=== PATIENT | male | born 1965 | race Caucasian/White ===

== ENCOUNTER 2021-02-05 18:10 | Inpatient (IN) | payer MEDICAID, SELFPAY ==
[~2021-02-05] VITALS: Ht 172.7 cm; Wt 92.5 kg
[2021-02-05 18:34] VITALS: BP 122/85
--- NOTE | 2021-02-05 18:52 | NUR ---
PT AMB TO BED 1.
[2021-02-05] MEDS ORDERED: DEXAMETHASONE 4 MG/ML VIAL IVP ONE (19:05)
[2021-02-05 19:12] LABS: BASOPHILS % (AUTO) 0.5 % (0.0-2.0); EOSINOPHILS # (AUTO) 0.1 K/uL (0-0.4); EOSINOPHILS % (AUTO) 0.6 % (0.0-4.0); HEMATOCRIT 45.3 % (36-52); HEMOGLOBIN 15.8 g/dL (12.0-18.0); LYMPHOCYTES # (AUTO) 1.2 K/uL (2.0-11.5); MEAN CORPUSCULAR HEMOGLOBIN 30 pg (27-31); MEAN CORPUSCULAR HGB CONC 35 g/dL (33-37); MEAN CORPUSCULAR VOLUME 86.6 fL (80-94); MONOCYTES # (AUTO) 0.7 K/uL (0.8-1.0); MONOCYTES % (AUTO) 7.3 % (1.7-9.3); NEUTROPHILS # (AUTO) 7.7 K/uL (1.8-7.7); NEUTROPHILS % (AUTO) 79.6 % (42.2-75.2); PLATELET COUNT (AUTO) 290 K/uL (140-450); RED BLOOD CELL COUNT(AUTO) 5.23 MIL/uL (4.20-6.10); RED CELL DISTRIBUTION WIDTH 13.1 % (11.6-13.7); WHITE BLOOD COUNT (AUTO) 9.6 K/uL (4.8-10.8)
[2021-02-05 19:23] LABS: PROTHROMBIN TIME 10.2 secs (10.8-13.4)
[2021-02-05 19:26] LABS: PROTHROMBIN TIME 10.2 secs (10.8-13.4)
[2021-02-05 19:29] LABS: ALBUMIN 2.7 g/dL (3.4-5.0); ANION GAP 15.1 (8-16); CARBON DIOXIDE 24.9 mmol/L (21-32); CREATININE 1.1 mg/dL (0.6-1.3); TOTAL BILIRUBIN 0.5 mg/dL (0.0-1.0)
--- NOTE | 2021-02-05 19:34 | NUR ---
patient c/o SOB. crackles, and diminished breath sounds heard throughout lung gutierrez. patient has moist productive cough. patient was redirected from dr office due to O2 sats trending in the 70s-80s. patient reports having bronchitis. symptoms started 2wks ago. patient c/o difficulty with ADLs causing that difficulty breathing and some pressure on the chest. patient c/o of 8/10 pain. AAOx4. pmh: asthma, DM NKA
[2021-02-05 19:35] LABS: LACTATE DEHYDROGENASE 153 U/L (85-227)
[2021-02-05] MEDS ORDERED: AZITHROMYCIN 500 MG in DEXTROSE 5% 250 ML IV ONE (20:00)
--- NOTE | 2021-02-05 20:16 | NUR ---
SENT SWAB OF RSV, INFLUENZA, ASHLEY, PCR TO LAB.
[2021-02-05] MEDS ORDERED: cefTRIAXone 1,000 MG VIAL ONE (20:40)
[2021-02-05] MEDS ORDERED: NACL 0.9% 1,000 ML IV ONE (21:00)
[2021-02-05] MEDS ORDERED: AZITHROMYCIN 500 MG INJ VIAL IV ONE (21:04)
--- NOTE | 2021-02-05 22:38 | NUR ---
provided patient with urinal to urinate
[2021-02-06 00:01] LABS: APPEARANCE,URINE CLEAR (CLEAR); BILIRUBIN,URINE NEGATIVE (NEGATIVE); BLOOD, URINE NEGATIVE (NEGATIVE); COLOR,URINE YELLOW (YELLOW); LEUKOCYTE ESTERASE ,URINE NEGATIVE (NEGATIVE); NITRITE, URINE NEGATIVE (NEGATIVE); UGLUCOSE 3+ (NEGATIVE)
[2021-02-06 00:16] LABS: RBC,URINE 0-5 /HPF (0-5); WBC,URINE NONE SEEN /HPF (0-5)
[2021-02-06] MEDS: NACL 0.9% 1,000 ML IV SCH (00:20)
[2021-02-06] MEDS ORDERED: MORPHINE SULFATE 2 MG/ML SYR IVP PRN (00:20)
[2021-02-06] MEDS ORDERED: DOCUSATE SODIUM 100 MG GELCAP PO PRN (00:20)
[2021-02-06] MEDS ORDERED: MAGNESIUM OXIDE 400 MG TAB PO PRN (00:20)
[2021-02-06] MEDS ORDERED: POTASSIUM CHLORIDE 10 MEQ TABER PO PRN (00:20)
[2021-02-06] MEDS ORDERED: ACETAMINOPHEN 325 MG TAB PO PRN (00:20)
[2021-02-06] MEDS ORDERED: ALBUTEROL SULFATE/IPRATROPIU 3 ML SOL IH PRN (00:20)
[2021-02-06] MEDS ORDERED: ONDANSETRON 4 MG/2 ML VIAL IM/IVP PRN (00:20)
[2021-02-06] MEDS ORDERED: HYDROcodone/APAP 5/325 MG 1 TAB TAB PO PRN (00:20)
[2021-02-06] MEDS ORDERED: SODIUM PHOS / POTASSIUM PHOS 1 PKT PDR PO PRN (00:20)
[2021-02-06] MEDS ORDERED: DEXTROSE 50% 50 ML SYR IVP PRN (00:35)
--- NOTE | 2021-02-06 01:02 | NUR ---
provided patient with urinal for urination
--- NOTE | 2021-02-06 05:01 | NUR ---
Patient appears to be resting comfortably in bed. Vital Signs within normal limits. Respirations even and unlabored. Safety measures are in place, will continue to monitor patient
[2021-02-06 06:59] LABS: BASOPHILS % (AUTO) 0.4 % (0.0-2.0); EOSINOPHILS % (AUTO) 0.1 % (0.0-4.0); HEMATOCRIT 43.9 % (36-52); LYMPHOCYTES # (AUTO) 1.4 K/uL (2.0-11.5); LYMPHOCYTES % (AUTO) 17.4 % (20.5-51.1); MEAN CORPUSCULAR HEMOGLOBIN 30 pg (27-31); MEAN CORPUSCULAR HGB CONC 34 g/dL (33-37); MEAN CORPUSCULAR VOLUME 86.2 fL (80-94); MONOCYTES # (AUTO) 0.5 K/uL (0.8-1.0); MONOCYTES % (AUTO) 6.3 % (1.7-9.3); NEUTROPHILS # (AUTO) 6.2 K/uL (1.8-7.7); NEUTROPHILS % (AUTO) 75.8 % (42.2-75.2); PLATELET COUNT (AUTO) 290 K/uL (140-450); RED BLOOD CELL COUNT(AUTO) 5.09 MIL/uL (4.20-6.10); RED CELL DISTRIBUTION WIDTH 13.1 % (11.6-13.7); WHITE BLOOD COUNT (AUTO) 8.2 K/uL (4.8-10.8)
--- NOTE | 2021-02-06 07:15 | NUR ---
Pt report given to ROBIN Bustos. Transfer of care at this time.
--- NOTE | 2021-02-06 07:15 | NUR ---
Report and continuation of care received from ROBIN Ortez.
[2021-02-06] MEDS: BLOOD GLUCOSE MONITORING 1 DEV DEV FS SCH ×5 (07:30→20:44)
[2021-02-06 07:37] LABS: ANION GAP 14.8 (8-16); CARBON DIOXIDE 24.6 mmol/L (21-32); CREATININE 0.8 mg/dL (0.6-1.3); POTASSIUM 4.4 mmol/L (3.5-5.1)
[2021-02-06 07:41] LABS: PHOSPHORUS 3.6 mg/dL (2.5-4.9)
--- NOTE | 2021-02-06 08:30 | NUR ---
Patient voided 1025mL clear/yellow urine; discarded and new urinal provided.
--- NOTE | 2021-02-06 08:51 | NUR ---
PATIENT HAS BEEN SCREENED AND CATEGORIZED MODERATE NUTRITION RISK. PATIENT WILL BE SEEN WITHIN 3-5 DAYS OF ADMISSION. 02/08/2021-02/10/[address]
[2021-02-06] MEDS: DEXAMETHASONE 4 MG/ML VIAL IVP SCH (10:27)
[2021-02-06] MEDS: PANTOPRAZOLE 40 MG INJ VIAL IVP SCH (10:28)
[2021-02-06] MEDS: ASCORBIC ACID 500 MG TAB PO SCH (10:28)
[2021-02-06] MEDS: ZINC SULF 220 MG CAP PO SCH (10:28)
[2021-02-06] MEDS: VITAMIN D 400 IU TAB PO SCH (10:28)
[2021-02-06] MEDS: ENOXAPARIN 40 MG/0.4 ML SYR SUBQ SCH (10:30)
[2021-02-06] MEDS: INSULIN LISPRO SLIDING SCALE 100 UNITS/ML VIAL SUBQ PRN ×3 (10:42→20:45)
--- NOTE | 2021-02-06 11:00 | NUR ---
SpO2 84%; patient states he feels SOB. NC remains @ 15L by N/C / bubbler. RT paged.
--- NOTE | 2021-02-06 11:05 | NUR ---
RT AT BEDSIDE; PATIENT REPOSITIONED INTO PRONE POSITION; SpO2 90% remains on 15L via N/C bubbler. Patient states relief to SOB in prone position. Will continue to monitor.
--- NOTE | 2021-02-06 11:15 | NUR ---
SpO2 98% in proned position; 15L via NC/bubbleer continued.
--- NOTE | 2021-02-06 11:31 | NUR ---
Report given to ROBIN Cifuentes.
--- NOTE | 2021-02-06 11:45 | NUR ---
Patient will be admitted to care of Dr. Acosta. Admited to Telemetry. Will go to room 118. Belongings list completed. Report to ROBIN Cifuentes.
[2021-02-06 11:51] VITALS: BP_SYST 117; BP_DIAS 117; BP_DIAS 67
--- NOTE | 2021-02-06 11:51 | NUR ---
PT WAS BROUGHT IN FROM THE ED FOR COVID ON A NONREBREATHER AT 15L, PLACED ON A NC BUBBLER AT 15L. PT PLACED IN PRONE SEMI FOWLERS POSITION. PT SATING AT 94%. PT VITAL SIGNS ARE FOLLOWS: 68 HR, 117/67. 95%, 22, 98.7. PT DENIES PAIN AT THIS TIME. PT SKIN DRY, WARM AND INTACT. PT HAS A 20 G RIGHT HAND RUNNING NS AR 40. PT ALSO HAS A 20 G LAC SALINE LOCK THAT IS PATENT. PT RAPID NEGATIVE, PCR PENDING. PT INFLUENZA A&B NEGATIVE. PT PROVIDED WITH A BEDSIDE COMMODE AND URINAL AT BEDSIDE. EDUCATED PT ON IMPORTANCE OF KEEPING O2 ON WHILE TRANSFERRING TO BEDSIDE COMMODE. PT PROVIDED WITH CALL LIGHT AND EDUCATED ON USING IT TO CALL FOR ASSISTANCE. PT VERBALIZED ON ALL TEACHINGS. PT HOOKED UP TO TELE MONITOR SHOWING SINUS RHYTHM AND CONTINUOUS PULSE OX. ALL SAFETY MEASURES IN PLACE, CALL LIGHT WITHIN REACH. WILL CONTINUE TO MONITOR.
[2021-02-06] MEDS ORDERED: AZIT250T3 PO (11:56)
--- NOTE | 2021-02-06 13:01 | NUR ---
PT PROVIDED WITH A LUNCH TRAY, PT IS STABLE SATING AT 90% ON 15L NC BUBBLER
--- NOTE | 2021-02-06 14:57 | NUR ---
ROUNDED ON PT, IN PT ROOM. PT IS ON 15L BUBBLER NC WITH CHEST RISING AND FALLING. ALL SAFETY MEASURES IN PLACE CALL LIGHT WITHIN REACH. WILL CONTINUE TO MONITOR.
[2021-02-06 16:00] VITALS: BP 115/64
--- NOTE | 2021-02-06 16:22 | NUR ---
BLOOD GLUCOSE IS 273, 6 UNITS OF INSULIN ADMINISTERED PER MD ORDER. PT TOLERATED ADMINISTRATION. PT IS SATING AT 90%. ALL SAFETY MEASURES IN PLACE, CALL LIGHT WITHIN REACH. WILL CONTINUE TO MONITOR.
--- NOTE | 2021-02-06 18:21 | NUR ---
PT IS SATING AT 94% SITTING UP IN CHAIR ON 15L NC BUBBLER. PT SHOWS NO S/S OF ACUTE DISTRESS. PT ON HIS PHONE. ALL SAFETY MEASURES IN PLACE CALL LIGHT WITHIN REACH. WILL CONTINUE TO MONITOR.
--- NOTE | 2021-02-06 19:01 | NUR ---
PT IS STABLE. PT ENDORSED TO [employer] [place] NURSE FOR CONTINUITY OF CARE. POC DISCUSSED.
--- NOTE | 2021-02-06 19:50 | NUR ---
RECEIVED PATIENT FROM AM NURSE FOR CONTINUITY OF CARE. PATIENT IS A/A/O X4. ON TELE MONITOR. RESPIRATORY EVEN AND UNLABORED, ON 15L BUBBLER NC, O2 SAT 91%, PATIENT DENIES ANY SOB AND TROUBLE BREATHING. SKIN WARM, DRY, NON DIAPHORETIC. IV ON RIGHT HAND 20G, INTACT AND PATENT, IS INFUSING FLUID ORDER. IV ON LEFT AC 20G, INTACT AND PATENT, SALINE LOCK. BED COMMODE AND URINAL AT BEDSIDE. PATIENT ABLE TO MAKE NEEDS KNOW. PLAN OF CARE DISCUSSED, PATIENT VERBALIZED UNDERSTANDING. PRECAUTION IN PLACE. CALL LIGHT WITHIN REACH. WILL CONTINUE TO MONITOR.
[2021-02-06 20:00] VITALS: BP 112/75
--- NOTE | 2021-02-06 20:20 | NUR ---
ASSIST PATIENT AMBULATE TO BEDSIDE COMMODE. PATIENT TOLERATED WELL. NO SIGN OF DISTRESS NOTED. PRECAUTION IN PLACE. CALL LIGHT WITHIN REACH. WILL CONTINUE TO MONITOR.
--- NOTE | 2021-02-06 22:00 | NUR ---
ROUND CHECK. PATIENT IS RESTING IN BED, NO SIGN OF DISTRESS NOTED. PRECAUTION IN PLACE. CALL LIGHT WITHIN REACH. WILL CONTINUE TO MONITOR.
[2021-02-07] VITALS: BP 116/81
--- NOTE | 2021-02-07 | NUR ---
VITAL SIGN WITHIN NORMAL LIMIT. PATIENT IS SLEEPING, CHEST RISE AND FALL, NO SIGN OF DISTRESS NOTED, O2 SAT 95%. PRECAUTION IN PLACE. CALL LIGHT WITHIN REACH. WILL CONTINUE TO MONITOR.
[2021-02-07] MEDS: NACL 0.9% 1,000 ML IV SCH ×2 (00:20→04:56)
--- NOTE | 2021-02-07 02:00 | NUR ---
ROUND CHECK. PATIENT IS SLEEPING, CHEST RISE AND FALL NOTED. NO SIGN OF RESPIRATORY DISTRESS. PRECAUTION IN PLACE. CALL LIGHT WITHIN REACH. WILL CONTINUE TO MONITOR.
[2021-02-07 04:00] VITALS: BP 132/81
--- NOTE | 2021-02-07 04:00 | NUR ---
VITAL SIGNS TAKEN, PATIENT COMPLAINS OF SOB, O2 SAT 84% ON 15L BUBBLER NC, REQUESTS BREATHING TREATMENT. CONTACT RT. RT AWARE PATIENT'S CONDITION. WILL CONTINUE TO MONITOR.
--- NOTE | 2021-02-07 06:00 | NUR ---
PATIENT REPORTS FEELING BETTER, DENIES ANY SOB OR TROUBLE BREATHING. O2 SAT 89% ON 15L BUBBLER NC. WILL CONTINUE TO MONITOR.
[2021-02-07] MEDS: INSULIN LISPRO SLIDING SCALE 100 UNITS/ML VIAL SUBQ PRN ×3 (06:49→16:45)
[2021-02-07] MEDS: BLOOD GLUCOSE MONITORING 1 DEV DEV FS SCH ×4 (06:49→22:00)
--- NOTE | 2021-02-07 06:49 | NUR ---
BLOOD SUGAR 217, 4UNITS GIVEN TO COVER. PATIENT TOLERATED WELL. NO SIGN OF DISTRESS NOTED.
[2021-02-07 07:12] LABS: BASOPHILS % (AUTO) 0.1 % (0.0-2.0); EOSINOPHILS % (AUTO) 0.5 % (0.0-4.0); HEMATOCRIT 44.1 % (36-52); HEMOGLOBIN 15.2 g/dL (12.0-18.0); LYMPHOCYTES # (AUTO) 1.4 K/uL (2.0-11.5); LYMPHOCYTES % (AUTO) 13.6 % (20.5-51.1); MEAN CORPUSCULAR HEMOGLOBIN 30 pg (27-31); MEAN CORPUSCULAR HGB CONC 35 g/dL (33-37); MEAN CORPUSCULAR VOLUME 87.2 fL (80-94); MONOCYTES # (AUTO) 0.6 K/uL (0.8-1.0); MONOCYTES % (AUTO) 5.5 % (1.7-9.3); NEUTROPHILS # (AUTO) 8.1 K/uL (1.8-7.7); NEUTROPHILS % (AUTO) 80.3 % (42.2-75.2); PLATELET COUNT (AUTO) 334 K/uL (140-450); RED BLOOD CELL COUNT(AUTO) 5.05 MIL/uL (4.20-6.10); RED CELL DISTRIBUTION WIDTH 13.3 % (11.6-13.7); WHITE BLOOD COUNT (AUTO) 10.1 K/uL (4.8-10.8)
--- NOTE | 2021-02-07 07:19 | NUR ---
ENDORSED PATIENT TO AM NURSE FOR CONTINUITY OF CARE. PATIENT IS STABLE.
--- NOTE | 2021-02-07 07:27 | NUR ---
PT BEEN ENDORSED FROM OIL EXTRACTOR NURSE FOR CONTINUITY OF CARE, POC DISCUSSED. PT IS IN SEMI FOWLERS POSITION ON 15L BUBBLER NC, SATING AT 89. PT CHEST RISING AND FALLING EVEN AND UNLABORED, NO COMPLAINT OF SOB. PT SKIN INTACT WITH A R HAND 20 G RUNNING 40 ML NS, AND A L AC 20 G SALINE LOCK. ALL COVID PRECAUTIONS IN PLACE, AND ALL SAFETY MEASURES IN PLACE. CALL LIGHT WITHIN REACH. WILL CONTINUE TO MONITOR.
[2021-02-07 07:44] LABS: ANION GAP 13.8 (8-16); CARBON DIOXIDE 25.1 mmol/L (21-32); CREATININE 0.8 mg/dL (0.6-1.3); POTASSIUM 3.9 mmol/L (3.5-5.1)
[2021-02-07 08:00] VITALS: BP 145/71
[2021-02-07] MEDS: PANTOPRAZOLE 40 MG INJ VIAL IVP SCH (08:10)
[2021-02-07] MEDS: ASCORBIC ACID 500 MG TAB PO SCH (08:10)
[2021-02-07] MEDS: VITAMIN D 400 IU TAB PO SCH (08:11)
[2021-02-07] MEDS: DEXAMETHASONE 4 MG/ML VIAL IVP SCH (08:11)
[2021-02-07] MEDS: ZINC SULF 220 MG CAP PO SCH (08:11)
[2021-02-07] MEDS: ENOXAPARIN 40 MG/0.4 ML SYR SUBQ SCH (08:12)
--- NOTE | 2021-02-07 08:27 | NUR ---
[facility] MEDICATION ADMINISTERED PER MD ORDER. PT TOLERATED ADMINISTRATION. MEDICATION ADMINISTRATION PROVIDED, PT VERBALIZED UNDERSTANDING. EDUCATION PROVIDED IN INCENTIVE SPIROMETER, AND BREATHING EXERCISES. PT VERBALIZED UNDERSTANDING. IV SITE PATENT AND INTACT. INTERMITTENT COUGH NOTED WITH YELLOW PHLEGM PRODUCTION. PT ON 15L NC BUBBLER, SATING AT 91% IN SEMI FOWLERS POSITION.
--- NOTE | 2021-02-07 10:21 | NUR ---
PT IS ASLEEP IN BED WITH CHEST RISING AND FALLING EVEN AND UNLABORED. PT IS SATING AT 89% ON 15 L BUBBLER. NO S/S OF SOB. ALL SAFETY MEASURES IN PLACE, CALL LIGHT WITHIN REACH. WILL CONTINUE TO MONITOR.
--- NOTE | 2021-02-07 11:48 | NUR ---
BLOOD GLUCOSE IS 346, 8 UNITS OF INSULIN ADMINISTERED PER MD ORDER. PT EDUCATION PROVIDED. PT IS SATING AT 89%. ALL SAFETY MEASURES IN PLACE, CALL LIGHT WITHIN REACH. WILL CONTINUE TO MONITOR.
[2021-02-07 12:00] VITALS: BP 131/80
--- NOTE | 2021-02-07 12:55 | NUR ---
PT PLACED IN PRONE POSITION, PT SATING AT 90%. ALL SAFETY MEASURES IN PLACE, CALL LIGHT WITHIN REACH. WILL CONTINUE TO MONITOR.
--- NOTE | 2021-02-07 14:21 | NUR ---
PT IS STABLE IN BED WITH NO ACUTE S/S OF DISTRESS, PT CHEST RISING AND FALLING EVEN AND UNLABORED, SATING AT 94% IN PRONE POSITION. ALL SAFETY MEASURES IN PLACE. CALL LIGHT WITHIN REACH. WILL CONTINUE TO MONITOR.
--- NOTE | 2021-02-07 15:12 | NUR ---
PT RESTING IN BED USING INCENTIVE SPIROMETER. PT IS STABLE. ALL SAFETY MEASURES IN PLACE. CALL LIGHT WITHIN REACH. WILL CONTINUE TO MONITOR.
[2021-02-07 16:00] VITALS: BP 103/73
--- NOTE | 2021-02-07 16:18 | NUR ---
PT BACK IN PRONE POSITION, SATING AT 94%. CHEST RISING AND FALLING EVEN AND UNLABORED. ALL SAFETY MEASURES IN PLACE. CALL LIGHT WITHIN REACH. WILL CONTINUE TO MONITOR.
--- NOTE | 2021-02-07 16:58 | NUR ---
PT BLOOD GLUCOSE IS 246 6 UNITS OF INSULIN ADMINISTERED. ALL SAFETY MEASRUES IN PLACE. CALL LIGHT WITHIN REACH.
--- NOTE | 2021-02-07 19:24 | NUR ---
PT ENDORSED TO [employer]P RESEARCH & EBUSINESS OPERATIONS NURSE FOR CONTINUITY OF CARE, PT IN STABLE CONDITION.
[2021-02-07 23:13] VITALS: BP 114/82
--- NOTE | 2021-02-07 23:18 | NUR ---
pateint vitals are stable , his O2 STAT fluctuating 86% - 95%, the patient is practicing prone position and his O2 STATE improves and He is on SR COMFORT AND SAFETY MEASURES ARE PROVIDED. incentive spirometry is encouraged, , the patient is complying comfort and safety measures are provided
[2021-02-08] MEDS: INSULIN LANTUS 100 UNITS/ML 10 ML VIAL SUBQ SCH ×2 (00:01→20:50)
[2021-02-08 06:09] VITALS: BP 104/57
[2021-02-08] MEDS: AZITHROMYCIN 500 MG in DEXTROSE 5% 250 ML IV SCH (06:30)
[2021-02-08] MEDS ORDERED: cefTRIAXone 1,000 MG VIAL ONE (06:38)
[2021-02-08] MEDS ORDERED: AZITHROMYCIN 500 MG INJ VIAL IV ONE (06:39)
[2021-02-08 07:33] LABS: ALBUMIN 2.5 g/dL (3.4-5.0); ANION GAP 11.7 (8-16); CARBON DIOXIDE 27.1 mmol/L (21-32); CREATININE 0.9 mg/dL (0.6-1.3); POTASSIUM 3.8 mmol/L (3.5-5.1); TOTAL BILIRUBIN 0.8 mg/dL (0.0-1.0)
[2021-02-08 07:46] LABS: PROTHROMBIN TIME 10.8 secs (10.8-13.4)
[2021-02-08 08:00] VITALS: BP 108/69
[2021-02-08] MEDS: BLOOD GLUCOSE MONITORING 1 DEV DEV FS SCH ×4 (08:30→20:45)
[2021-02-08] MEDS: ENOXAPARIN 40 MG/0.4 ML SYR SUBQ SCH (08:40)
[2021-02-08] MEDS: INSULIN LISPRO SLIDING SCALE 100 UNITS/ML VIAL SUBQ PRN ×4 (08:40→20:48)
[2021-02-08] MEDS: ZINC SULF 220 MG CAP PO SCH (08:41)
[2021-02-08] MEDS: VITAMIN D 400 IU TAB PO SCH (08:41)
[2021-02-08] MEDS: ASCORBIC ACID 500 MG TAB PO SCH (08:41)
[2021-02-08] MEDS: DEXAMETHASONE 4 MG/ML VIAL IVP SCH (08:41)
[2021-02-08] MEDS: PANTOPRAZOLE 40 MG INJ VIAL IVP SCH (08:41)
--- NOTE | 2021-02-08 09:15 | NUR ---
ALL SCHEDULED MEDS GIVEN. PT IS STABLE. NO DISTRESS NOTED. WILL CONTINUE TO MONITOR.
[2021-02-08 12:00] VITALS: BP 131/71
--- NOTE | 2021-02-08 13:30 | NUR ---
CHECKED ON PATIENT. O2 SATURATION WAS AT 84%. PATIENT NOT IN DISTRESS. NOTIFIED RT PATIENT'S O2 SATURATION. RT ON THE WAY AND WILL ASSESS PATIENT.
[2021-02-08 14:02] LABS: BASOPHILS # (AUTO) 0.1 K/uL (0.00-0.22); BASOPHILS % (AUTO) 0.5 % (0.0-2.0); EOSINOPHILS # (AUTO) 0.1 K/uL (0-0.4); EOSINOPHILS % (AUTO) 1.1 % (0.0-4.0); HEMATOCRIT 44.4 % (36-52); HEMOGLOBIN 15.1 g/dL (12.0-18.0); LYMPHOCYTES # (AUTO) 1.3 K/uL (2.0-11.5); LYMPHOCYTES % (AUTO) 10.8 % (20.5-51.1); MEAN CORPUSCULAR HEMOGLOBIN 30 pg (27-31); MEAN CORPUSCULAR HGB CONC 34 g/dL (33-37); MEAN CORPUSCULAR VOLUME 87.9 fL (80-94); MONOCYTES # (AUTO) 0.5 K/uL (0.8-1.0); MONOCYTES % (AUTO) 4.1 % (1.7-9.3); NEUTROPHILS # (AUTO) 10.1 K/uL (1.8-7.7); NEUTROPHILS % (AUTO) 83.5 % (42.2-75.2); PLATELET COUNT (AUTO) 327 K/uL (140-450); RED BLOOD CELL COUNT(AUTO) 5.05 MIL/uL (4.20-6.10); RED CELL DISTRIBUTION WIDTH 12.9 % (11.6-13.7); WHITE BLOOD COUNT (AUTO) 12.1 K/uL (4.8-10.8)
--- NOTE | 2021-02-08 15:05 | NUR ---
CHECKED ON PATIENT. PATIENT IS SEEN IN PRONE POSITION. O2 SATURATION AT 92%. NO DISTRESS NOTED. WILL CONTINUE TO MONITOR.
[2021-02-08 16:00] VITALS: BP 108/58
--- NOTE | 2021-02-08 17:44 | NUR ---
BLOOD GLUCOSE CHECK WAS 268. ADMINISTERED 6 UNITS OF INSULIN SQ PER MD ORDERED
[2021-02-08] MEDS: NACL 0.9% 1,000 ML IV SCH ×2 (18:19→23:17)
--- NOTE | 2021-02-08 19:51 | NUR ---
ENDORSED TO FIELD ARTILLERY RADAR OPERATOR NURSE FOR CONTINUITY OF CARE. PT IS STABLE.
--- NOTE | 2021-02-08 19:52 | NUR ---
RECEIVED BEDSIDE REPORT FROM DAY RN. PT IS AAOX4. RESPIRATIONS ARE EQUAL AND UNLABORED ON 15L VIA NC HUMIDIFIER PT IS PRONE POSITION SAT WELL 91-94%. PT IS ABLE TO MAKE NEEDS KNOWN. SKIN IS WARM, DRY AND INTACT. IV ON R SHABAZZ 20G INFUSING IVF PER ORDERS AND LAC 20G SL. PT IS COVID + WITH ISO SIGN AT DOOR. RT IN THE CASE. POC DISCUSSED WITH PATIENT. CALL LIGHT IS WITHIN REACH. WILL CONTINUE TO MONITOR.
--- NOTE | 2021-02-08 20:45 | NUR ---
PT SITTING UP IN BED WATCHING FOOTBALL ON TV. DENIES ANY COMPLAINTS AT THIS TIME. VSS. BS 249 ADMIN NAKUL LANTUS AND HUMALOG PER SLIDING SCALE. SNACK AT BEDSIDE. PT SAT WELL 94% ON 15L ENCOURAGED PATIENT TO USE IS 10X EVERY HOUR WHEN AWAKE, PT VERBALIZED UNDERSTANDING. CALL LIGHT IS WITHIN REACH. WILL CONTINUE TO MONITOR.
[2021-02-08 21:28] VITALS: BP 119/66
--- NOTE | 2021-02-08 22:25 | NUR ---
PATIENT RESTING IN BED WATCHING TV. NO S/S OF DISTRESS. CALL LIGHT IS WITHIN REACH. WILL CONTINUE TO MONITOR.
[2021-02-09] VITALS: BP 116/78
--- NOTE | 2021-02-09 00:05 | NUR ---
VITAL SIGNS ARE WITHIN NORMAL LIMITS. SAFETY MEASURES ARE IN PLACE. WILL CONTINUE TO MONITOR.
--- NOTE | 2021-02-09 02:02 | NUR ---
MADE ROUNDS. PATIENT APPEARS TO BE ASLEEP. CHEST RISE AND FALL NOTED. CALL LIGHT IS WITHIN REACH. WILL CONTINUE TO MONITOR.
[2021-02-09] MEDS: AZITHROMYCIN 500 MG in DEXTROSE 5% 250 ML IV SCH (02:18)
[2021-02-09 04:00] VITALS: BP 111/54
--- NOTE | 2021-02-09 04:03 | NUR ---
VITAL SIGNS ARE WITHIN NORMAL LIMITS. ALL SAFETY MEASURES ARE IN PLACE. CALL LIGHT IS WITHIN REACH. WILL CONTINUE TO MONITOR.
[2021-02-09] MEDS: INSULIN LISPRO SLIDING SCALE 100 UNITS/ML VIAL SUBQ PRN ×4 (06:41→20:12)
[2021-02-09] MEDS: BLOOD GLUCOSE MONITORING 1 DEV DEV FS SCH ×4 (06:41→20:13)
--- NOTE | 2021-02-09 06:41 | NUR ---
PT RESTING IN BED DENIES ANY DISTRESS AT THIS TIME. BS 158 ADMIN HUMALOG PER SLIDING SCALE, SNACK AT BEDSIDE. CALL LIGHT IS WITHIN REACH.
[2021-02-09 07:10] LABS: BASOPHILS % (AUTO) 0.2 % (0.0-2.0); EOSINOPHILS # (AUTO) 0.3 K/uL (0-0.4); EOSINOPHILS % (AUTO) 2.5 % (0.0-4.0); HEMATOCRIT 43.3 % (36-52); LYMPHOCYTES # (AUTO) 1.4 K/uL (2.0-11.5); LYMPHOCYTES % (AUTO) 11.1 % (20.5-51.1); MEAN CORPUSCULAR HEMOGLOBIN 30 pg (27-31); MEAN CORPUSCULAR HGB CONC 35 g/dL (33-37); MEAN CORPUSCULAR VOLUME 85.6 fL (80-94); MONOCYTES # (AUTO) 0.3 K/uL (0.8-1.0); MONOCYTES % (AUTO) 2.7 % (1.7-9.3); NEUTROPHILS # (AUTO) 10.7 K/uL (1.8-7.7); NEUTROPHILS % (AUTO) 83.5 % (42.2-75.2); PLATELET COUNT (AUTO) 315 K/uL (140-450); RED BLOOD CELL COUNT(AUTO) 5.06 MIL/uL (4.20-6.10); RED CELL DISTRIBUTION WIDTH 13.1 % (11.6-13.7); WHITE BLOOD COUNT (AUTO) 12.8 K/uL (4.8-10.8)
--- NOTE | 2021-02-09 07:10 | NUR ---
RECEIVE REPORT FROM LAST MARKER NURSE FOR CONTINUITY OF CARE. PATIENT SLEEPING. PATIENT ON 15 L SATING AT 94% O2. ALL SAFETY MEASURES IN PLACE. CALL LIGHT WITHIN REACH. WILL CONTINUE TO MONITOR.
--- NOTE | 2021-02-09 07:18 | NUR ---
GAVE BEDSIDE REPORT TO DAY RN. PT ENDORSED IN STABLE CONDITION.
[2021-02-09 08:00] VITALS: BP 124/72
[2021-02-09 08:24] LABS: ANION GAP 10.5 (8-16); CARBON DIOXIDE 29.1 mmol/L (21-32); CREATININE 0.9 mg/dL (0.6-1.3); POTASSIUM 3.6 mmol/L (3.5-5.1)
--- NOTE | 2021-02-09 08:25 | NUR ---
PT ON 10 L NC. SPO2 92% NO SOB OR DISTRESS NOTED. ADVISED PATIENT TO PRONE. PT VERBALIZED UNDERSTANDING. WILL CONTINUE TO MONITOR PATIENT.
[2021-02-09] MEDS: ZINC SULF 220 MG CAP PO SCH (08:34)
[2021-02-09] MEDS: ASCORBIC ACID 500 MG TAB PO SCH (08:35)
[2021-02-09] MEDS: VITAMIN D 400 IU TAB PO SCH (08:35)
[2021-02-09] MEDS: DEXAMETHASONE 4 MG/ML VIAL IVP SCH (08:37)
[2021-02-09] MEDS: PANTOPRAZOLE 40 MG INJ VIAL IVP SCH (08:37)
--- NOTE | 2021-02-09 08:37 | NUR ---
PATIENT AWAKE AND ALERT. NO ACUTE DISTRESS NOTED. PATIENT SCHEDULED MEDICATIONS GIVEN. PATIENT ON 15L VIA NC. PATIENT 02 SATING AT 93%. ALL SAFETY MEASURES IN PLACE. CALL LIGHT WITHIN REACH. WILL CONTINUE TO MONITOR.
[2021-02-09] MEDS: ENOXAPARIN 40 MG/0.4 ML SYR SUBQ SCH (08:40)
--- NOTE | 2021-02-09 10:15 | NUR ---
PATIENT AWAKE AND ALERT. NO ACUTE DISTRESS NOTED. PATIENT ON 10L VIA NC. PATIENT 02 SATING AT 90%.PER RT PATIENT O2 SAT TO REMAIN ABOVE 88%. ALL SAFETY MEASURES IN PLACE. CALL LIGHT WITHIN REACH. WILL CONTINUE TO MONITOR.
[2021-02-09 12:00] VITALS: BP 108/68
--- NOTE | 2021-02-09 12:46 | NUR ---
DC PLANNING: CM SPOKE WITH THE PATIENT BY PHONE. VERIFIED HIS ADDRESS AND PHONE NUMBER PER THE FACE SHEET. ALSO CONFIRMED THAT HE IS GOING TO FOLLOW UP ON HIS M/TANIA APPLICATION HE HAS PRESUMPTIVE M/TANIA. THE PATIENT LIVES IN A GROUND FLOOR APARTMENT WITH HIS AND IS CURRENTLY SELF EMPLOYED IN CONSTRUCTION. HE HAS NO H/O DME OR HOME HEALTH AND IS INDEPENDENT IN ALL ACTIVITIES. THE PATIENT STATES THAT HE IS CURRENTLY BEING WEANED DOWN FROM HIS HIGH FLOW O2, DISCUSSED POSSIBLE OUT OF POCKET COSTS FOR O2 IF HE REQUIRES IT UPON DISCHARGE. THE PATIENT STATES THAT NEITHER HE NOR HIS INTEND TO GET COVID VACCINATED THEY BELIEVE THAT PEOPLE ARE DYING FROM THE VACCINATION AND NOT FROM COVID. CM ENDORSED THAT IF HE CHANGES HIS MIND THAT HE CAN GO TO [facility] TO BE VACCINATED. CM ALSO ENDORSED THAT WHEN HE GETS FULL SCOPE M/TNAIA THAT HE NEEDS TO GET ESTABLISHED WITH A PCP FOR REGULAR VISITS AND MONITORING. CM WILL FOLLOW FOR NEEDS. Addendum: 02/12/21 at 1128 by Lois Turk CM DC PLANNING: ORDERS TO SET UP HOME O2. CM ASKED RT TO DOCUMENT O2 SATS ON RA. ALSO SPOKE WITH THE PATIENT, EXPLAINED THAT [email or web address] WILL CALL HIM FOR UP FRONT PAYMENT FOR 3 MONTHS AND THAT DELIVERY WILL BE LATER TODAY TO HIS HOME. CONFIRMED THAT HIS WILL BE HOME TO RECEIVE O2 AND EXPLAINED THAT SHE WILL NEED TO BRING PORTABLE O2 TO THE HOSPITAL FOR HIS DC. CONFIRMED ADDRESS FOR DELIVERY AND PHONE NUMBER FOR HIS . WILL FAX TO [email or web address] ONCE O2 SATS ARE IN SYSTEM. CM WILL FOLLOW FOR NEEDS. Addendum: 02/12/21 at 1437 by Lois Turk CM DC PLANNING: REFERRAL FAXED TO [facility] FOR HOME O2. RECEIVED A CALL FROM BRYN AT [facility] ASKING FOR PCR RESULTS AND CERTIFICATE OF NECESSITY. PER BRYN PATIENT IS NOW FULL SCOPE M/TANIA AND HIS HOME O2 WILL BE COVERED. HAROON FAXED THE PCR RESULTS AND COMPLETED CERTIFICATE OF NECESSITY, AND ALSO INFORMED THE PATIENT THAT HIS O2 WILL BE COVERED BY M/TANIA AND WILL NOT BE OUT OF POCKET PER [facility]. BRYN STATES THAT THE O2 SHOULD BE DELIVERED IN THE NEXT 2-3 HRS, HAROON ASKED THAT IT BE DELIVERED TO HIS HOME. HAROON WILL FOLLOW FOR NEEDS.
--- NOTE | 2021-02-09 12:59 | NUR ---
PATIENT AWAKE AND ALERT. NO ACUTE DISTRESS NOTED. PATIENT ON 15L VIA NC. PATIENT 02 SATING AT 93%. PATIENT O2 SAT INCREASED DUE TO PATIENT 02 SATING AT 86%. ALL SAFETY MEASURES IN PLACE. CALL LIGHT WITHIN REACH. WILL CONTINUE TO MONITOR.
--- NOTE | 2021-02-09 14:47 | NUR ---
PATIENT SLEEPING . NO ACUTE DISTRESS NOTED. BREATHING EVEN AND UNLABORED. PATIENT ON 15L VIA NC. PATIENT 02 SATING AT 94%. ALL SAFETY MEASURES IN PLACE. CALL LIGHT WITHIN REACH. WILL CONTINUE TO MONITOR.
--- NOTE | 2021-02-09 14:50 | NUR ---
02/09/21 RD INITIAL ASSESSMENT COMPLETED PLEASE REFER TO NUTRITION ASSESSMENT UNDER CARE ACTIVITY FOR ESTIMATED NUTRITIONAL NEEDS. 1. CONTINUE [facility] DIET TOLERATED 2. IF PO INTAKE DECLINES UNDER 75% RECOMMEND GLUCERNA BID 3. RD TO FOLLOW-UP 5-7 DAYS, LOW RISK DARON MENEZES, RD
--- NOTE | 2021-02-09 15:51 | NUR ---
PATIENT AWAKE AND ALERT. NO ACUTE DISTRESS NOTED. PATIENT ON 15L NC. PATIENT O2 SATING AT 93%. ALL SAFETY MEASURES IN PLACE. CALL LIGHT WITHIN REACH. WILL CONTINUE TO MONITOR.
[2021-02-09 16:00] VITALS: BP 114/65
--- NOTE | 2021-02-09 17:58 | NUR ---
PATIENT AWAKE AND ALERT. NO ACUTE DISTRESS NOTED. PATIENT ON 15L NC. PATIENT SATING AT 93%. ALL SAFETY MEASURES IN PLACE. CALL LIGHT WITHIN REACH. WILL CONTINUE TO MONITOR.
--- NOTE | 2021-02-09 19:10 | NUR ---
ENDORSED TO DRY CLEANING MACHINE OPERATOR HELPER NURSE FOR CONTINUITY OF CARE. PATIENT STABLE. ALL SAFETY MEASURES IN PLACE.
--- NOTE | 2021-02-09 19:28 | NUR ---
RECEIVED PT REPORT FROM DAYSWVFT NURSE FOR CONTINUITY OF CARE.
[2021-02-09 20:00] VITALS: BP 121/75
--- NOTE | 2021-02-09 21:00 | NUR ---
SCHEDULED BS WAS 219. GAVE 4 UNITS OF INSULIN FOR COVERAGE. SCHEDULED LANTUS GIVEN. PT TOLERATED WELL. EMPTIED 700ML URINAL.
[2021-02-09] MEDS: INSULIN LANTUS 100 UNITS/ML 10 ML VIAL SUBQ SCH (21:16)
[2021-02-10] VITALS: BP 102/68
--- NOTE | 2021-02-10 | NUR ---
PT ASLEEP, ON 15L NC, NO SIGNS OF DISTRESS. SAFETY MEASURES IMPLEMENTED.
--- NOTE | 2021-02-10 02:30 | NUR ---
GAVE SCHEDULED CEFTRIAXONE ABX.
[2021-02-10] MEDS: AZITHROMYCIN 500 MG in DEXTROSE 5% 250 ML IV SCH (03:21)
[2021-02-10 04:00] VITALS: BP 113/71
[2021-02-10] MEDS: BLOOD GLUCOSE MONITORING 1 DEV DEV FS SCH ×4 (07:16→20:08)
--- NOTE | 2021-02-10 07:33 | NUR ---
GAVE REPORT TO DAYSHIFT NURSE FOR CONTINUITY OF CARE
[2021-02-10 07:35] LABS: BASOPHILS % (AUTO) 0.2 % (0.0-2.0); EOSINOPHILS # (AUTO) 0.4 K/uL (0-0.4); EOSINOPHILS % (AUTO) 3.6 % (0.0-4.0); HEMATOCRIT 41.9 % (36-52); HEMOGLOBIN 14.5 g/dL (12.0-18.0); LYMPHOCYTES # (AUTO) 1.5 K/uL (2.0-11.5); LYMPHOCYTES % (AUTO) 13.6 % (20.5-51.1); MEAN CORPUSCULAR HEMOGLOBIN 30 pg (27-31); MEAN CORPUSCULAR HGB CONC 35 g/dL (33-37); MEAN CORPUSCULAR VOLUME 86.5 fL (80-94); MONOCYTES # (AUTO) 0.5 K/uL (0.8-1.0); MONOCYTES % (AUTO) 4.8 % (1.7-9.3); NEUTROPHILS # (AUTO) 8.4 K/uL (1.8-7.7); NEUTROPHILS % (AUTO) 77.8 % (42.2-75.2); PLATELET COUNT (AUTO) 339 K/uL (140-450); RED BLOOD CELL COUNT(AUTO) 4.84 MIL/uL (4.20-6.10); RED CELL DISTRIBUTION WIDTH 13.2 % (11.6-13.7); WHITE BLOOD COUNT (AUTO) 10.8 K/uL (4.8-10.8)
[2021-02-10 07:45] LABS: ANION GAP 14.8 (8-16); CARBON DIOXIDE 26.1 mmol/L (21-32); CREATININE 0.8 mg/dL (0.6-1.3); POTASSIUM 3.9 mmol/L (3.5-5.1)
[2021-02-10 07:58] LABS: PHOSPHORUS 2.9 mg/dL (2.5-4.9)
[2021-02-10 08:00] VITALS: BP 127/79
--- NOTE | 2021-02-10 08:00 | NUR ---
RECEIVED REPORT FROM BUTTONHOLE MAKER HAND FOR CONTINUITY OF CARE. PATIENT ALERT AWAKE ORIENTED X4. NOT IN ACUTE DISTRESS NOTED. ON 15L NC OXYGEN SATURATING 93%. WITH IVF ON GOING AND INFUSING WELL. ON MONITOR SHOWS SR. DENIES PAIN AT THIS TIME. DROPLET PRECAUTION OBSERVED. CALL LIGHT WITHIN REACH. WILL CONTINUE TO MONITOR.
--- NOTE | 2021-02-10 09:00 | NUR ---
DUE MEDICATIONS GIVEN. PATIENT INSTRUCTED TO AMBULATE INSIDE THE ROOM AND USE INCENTIVE SPIROMETRY, EDUCATED ON THE IMPORTANCE OF PRONING AND USING IS, PATIENT AMENABLE. WILL CONTINUE TO MONITOR.
[2021-02-10] MEDS: PANTOPRAZOLE 40 MG INJ VIAL IVP SCH (09:10)
[2021-02-10] MEDS: VITAMIN D 400 IU TAB PO SCH (09:10)
[2021-02-10] MEDS: DEXAMETHASONE 4 MG/ML VIAL IVP SCH (09:11)
[2021-02-10] MEDS: ASCORBIC ACID 500 MG TAB PO SCH (09:11)
[2021-02-10] MEDS: ZINC SULF 220 MG CAP PO SCH (09:14)
[2021-02-10] MEDS: ENOXAPARIN 40 MG/0.4 ML SYR SUBQ SCH (09:14)
[2021-02-10] MEDS: INSULIN LISPRO SLIDING SCALE 100 UNITS/ML VIAL SUBQ PRN ×3 (11:58→20:04)
[2021-02-10 12:00] VITALS: BP 122/74
[2021-02-10 16:00] VITALS: BP 117/70
[2021-02-10] MEDS ORDERED: remdesivir COMMUNICATION ORDER 1 EA MISC MC PRN (16:00)
[2021-02-10] MEDS ORDERED: REMDESIVIR. 200 MG in NACL 0.9% 100 ML IV ONE (18:00)
[2021-02-10] MEDS ORDERED: remdesivir CLINICAL MONITORING 1 EA MISC MC PRN (18:00)
--- NOTE | 2021-02-10 19:22 | NUR ---
RECEIVED REPORT FROM DAYSAKFT NURSE FOR CONTINUITY OF CARE.
--- NOTE | 2021-02-10 19:24 | NUR ---
REPORT GIVEN TO ROBIN DE SOUZA FOR CONTINUITY OF CARE. PATIENT IN STABLE CONDITION.
[2021-02-10 20:00] VITALS: BP 119/78
[2021-02-10] MEDS: INSULIN LANTUS 100 UNITS/ML 10 ML VIAL SUBQ SCH (20:08)
--- NOTE | 2021-02-10 20:17 | NUR ---
PT SEEN AND ASSESSED. PT IS ON HIGH FLOW BUBBLE NASAL CANNULA 15L . SPO2 91%. NO RESPIRATORY DISTRESS NOTED AT THIS TIME. WILL CONTINUE TO MONITOR PT.
--- NOTE | 2021-02-10 21:00 | NUR ---
CHECKED BS, IT WAS 291. GAVE 6 UNITS OF INSULIN FOR COVERAGE. SCHEDULED LANTUS GIVEN. PT TOLERATED WELL.
[2021-02-11] VITALS: BP 99/60
--- NOTE | 2021-02-11 01:00 | NUR ---
WEANED DOWN PT TO 12 L NC.
[2021-02-11 04:00] VITALS: BP 116/76
[2021-02-11] MEDS: AZITHROMYCIN 500 MG in DEXTROSE 5% 250 ML IV SCH (04:02)
[2021-02-11] MEDS: INSULIN LISPRO SLIDING SCALE 100 UNITS/ML VIAL SUBQ PRN ×4 (06:36→21:53)
[2021-02-11] MEDS: BLOOD GLUCOSE MONITORING 1 DEV DEV FS SCH ×4 (06:37→21:46)
--- NOTE | 2021-02-11 06:52 | NUR ---
CHECKED SCHEDULED BS IT WAS 208. GAVE 4 UNITS FOR COVERAGE.
--- NOTE | 2021-02-11 07:27 | NUR ---
GAVE REPORT TO DAYSHIFT NURSE FOR CONTINUITY OF CARE.
--- NOTE | 2021-02-11 07:27 | NUR ---
RECEIVED PATIENT FROM STORE PROMOTER NURSE FOR CONTINUITY OF CARE. PATIENT IS RESTING IN BED. AROUSABLE TO VOICE. A/A/O X4. ON TELE MONITOR. RESPIRATORY EVEN AND UNLABORED, ON 11L OXYGEN NC. NO SIGN OF DISTRESS NOTED. SKIN WARM, DRY, NON DIAPHORETIC. IV ON RIGHT HAND 20G, INTACT AND PATENT, IS INFUSING FLUID ORDER. PATIENT DENIES ANY PAIN OR DISCOMFORT. ABLE TO MAKE NEED KNOWN. BEDSIDE COMMODE NOTED. PLAN OF CARE DISCUSSED, PATIENT VERBALIZED UNDERSTANDING. PRECAUTION IN PLACE. CALL LIGHT WITHIN REACH. WILL CONTINUE TO MONITOR.
[2021-02-11 07:28] LABS: BASOPHILS % (AUTO) 0.3 % (0.0-2.0); EOSINOPHILS # (AUTO) 0.1 K/uL (0-0.4); EOSINOPHILS % (AUTO) 1.3 % (0.0-4.0); HEMATOCRIT 37.9 % (36-52); HEMOGLOBIN 13.4 g/dL (12.0-18.0); LYMPHOCYTES # (AUTO) 1.1 K/uL (2.0-11.5); LYMPHOCYTES % (AUTO) 15.8 % (20.5-51.1); MEAN CORPUSCULAR HEMOGLOBIN 30 pg (27-31); MEAN CORPUSCULAR HGB CONC 35 g/dL (33-37); MEAN CORPUSCULAR VOLUME 85.1 fL (80-94); MONOCYTES # (AUTO) 0.4 K/uL (0.8-1.0); MONOCYTES % (AUTO) 6.1 % (1.7-9.3); NEUTROPHILS # (AUTO) 5.3 K/uL (1.8-7.7); NEUTROPHILS % (AUTO) 76.5 % (42.2-75.2); PLATELET COUNT (AUTO) 339 K/uL (140-450); RED BLOOD CELL COUNT(AUTO) 4.46 MIL/uL (4.20-6.10); RED CELL DISTRIBUTION WIDTH 13.1 % (11.6-13.7); WHITE BLOOD COUNT (AUTO) 6.9 K/uL (4.8-10.8)
[2021-02-11 08:00] VITALS: BP 116/79
[2021-02-11] MEDS: PANTOPRAZOLE 40 MG INJ VIAL IVP SCH (08:39)
[2021-02-11] MEDS: ZINC SULF 220 MG CAP PO SCH (08:40)
[2021-02-11] MEDS: DEXAMETHASONE 4 MG/ML VIAL IVP SCH (08:41)
[2021-02-11] MEDS: VITAMIN D 400 IU TAB PO SCH (08:41)
--- NOTE | 2021-02-11 08:41 | NUR ---
SCHEDULE MEDICATIONS GIVEN WITH EDUCATION. PATIENT VERBALIZED UNDERSTANDING. PATIENT TOLERATED WELL. NO SIGN OF DISTRESS NOTED. PRECAUTION IN PLACE. CALL LIGHT WITHIN REACH. WILL CONTINUE TO MONITOR.
[2021-02-11] MEDS: ASCORBIC ACID 500 MG TAB PO SCH (08:42)
[2021-02-11] MEDS: ENOXAPARIN 40 MG/0.4 ML SYR SUBQ SCH (08:43)
--- NOTE | 2021-02-11 10:20 | NUR ---
WEANED PT TO 4 L NC. SPO2 90-93% NO SOB OR DISTRESS NOTED. CLEAR BREATH SOUNDS. PT SAID HE FEELS GREAT. WILL CONTINUE TO MONITOR PATIENT. 0
[2021-02-11 11:34] LABS: ANION GAP 14.7 (8-16); CARBON DIOXIDE 25.2 mmol/L (21-32); CREATININE 0.7 mg/dL (0.6-1.3); PHOSPHORUS 3.8 mg/dL (2.5-4.9); POTASSIUM 3.9 mmol/L (3.5-5.1); TOTAL BILIRUBIN 0.3 mg/dL (0.0-1.0)
--- NOTE | 2021-02-11 11:38 | NUR ---
BLOOD SUGAR CHECK 301, 8 UNITS OF INSULIN GIVEN TO COVER. PATIENT TOLERATED WELL. NO SIGN OF DISTRESS NOTED. PRECAUTION IN PLACE. CALL LIGHT WITHIN REACH. WILL CONTINUE TO MONITOR.
[2021-02-11 12:00] VITALS: BP 123/85
--- NOTE | 2021-02-11 15:42 | NUR ---
PATIENT IS USING BEDSIDE COMMODE INDEPENDENTLY. PATIENT IS STABLE, O2 SAT 91%, NO SIGN OF DISTRESS NOTED. PRECAUTION IN PLACE. CALL LIGHT WITHIN REACH. WILL CONTINUE TO MONITOR.
[2021-02-11] MEDS ORDERED: LOVENOX 1MG/KG Q12H SUBQ SCH (15:45)
[2021-02-11 16:00] VITALS: BP 122/83
--- NOTE | 2021-02-11 17:21 | NUR ---
BLOOD SUGAR CHECK 279, 6 UNITS OF INSULIN GIVEN AND SCHEDULE MEDICATION GIVEN WITH EDUCATION. PATIENT VERBALIZED UNDERSTANDING. PATIENT TOLERATED WELL. PRECAUTION IN PLACE. CALL LIGHT WITHIN REACH. WILL CONTINUE TO MONITOR.
[2021-02-11] MEDS ORDERED: REMDESIVIR. 100 MG in NACL 0.9% 100 ML IV SCH (18:00)
--- NOTE | 2021-02-11 19:23 | NUR ---
ENDORSED PATIENT TO MINERAL INDUSTRY TEACHER NURSE FOR CONTINUITY OF CARE. PATIENT IS STABLE.
[2021-02-11 20:00] VITALS: BP 93/56
--- NOTE | 2021-02-11 20:00 | NUR ---
PATIENT RECEIVED IN BED ALERT AND COHERENT NO S/S OF DISTRESS, DENIES PAIN
--- NOTE | 2021-02-11 21:00 | NUR ---
ALL DUE MEDICATIONS WERE ADMINISTERED BY MOUTH, SUBQ INJECTIONS WERE GIVEN, INSULIN COVERAGE WERE COVERED, WELL TOLERATED BY THE PATIENT
[2021-02-11] MEDS: INSULIN LANTUS 100 UNITS/ML 10 ML VIAL SUBQ SCH (21:46)
[2021-02-11] MEDS: ENOXAPARIN 100 MG/ML SYR SUBQ SCH (21:50)
[2021-02-12] VITALS: BP 115/78
--- NOTE | 2021-02-12 | NUR ---
DUE IV MEDICATIONS WERE GIVEN, PATIENT WAS ASLEEP.
--- NOTE | 2021-02-12 02:00 | NUR ---
PATIENT WAS CALMLY ASLEEP.
[2021-02-12] MEDS: AZITHROMYCIN 500 MG in DEXTROSE 5% 250 ML IV SCH (03:02)
[2021-02-12 04:00] VITALS: BP 116/79
--- NOTE | 2021-02-12 04:00 | NUR ---
PATIENT WAS CALMLY ASLEEP.
[2021-02-12] MEDS: BLOOD GLUCOSE MONITORING 1 DEV DEV FS SCH ×3 (06:40→17:13)
[2021-02-12] MEDS: INSULIN LISPRO SLIDING SCALE 100 UNITS/ML VIAL SUBQ PRN ×3 (06:41→17:26)
[2021-02-12 07:03] LABS: ALBUMIN 2.1 g/dL (3.4-5.0); ANION GAP 10.4 (8-16); CARBON DIOXIDE 26.4 mmol/L (21-32); CREATININE 0.8 mg/dL (0.6-1.3); POTASSIUM 3.8 mmol/L (3.5-5.1); TOTAL BILIRUBIN 0.2 mg/dL (0.0-1.0)
--- NOTE | 2021-02-12 07:20 | NUR ---
RECEIVED CHANGE OF SHIFT FROM GAS MAKER HELPER NURSE AT BEDSIDE FOR CONTINUITY OF CARE. DISCUSSED AND WILL CONTINUE WITH POC. PT CONDITION IS STABLE. PT IS AA&OX4 AND AMBULATORY. PT IS SR WITH AN EPISODE OF BRADYCARDIA IN THE TRACK GREASER REPORTED BY NIGHT NURSE. ON 4L NC WITH NORMAL AND UNLABORED BREATHING. PT HAS IV 20G IN R-HAND. SKIN IS WARM, DRY, AND INTACT, EXCEPT. WILL CONTINUE TO MONITOR.
[2021-02-12 08:00] VITALS: BP 97/66
--- NOTE | 2021-02-12 08:25 | NUR ---
REPORTS WERE GIVEN TO INCOMING RN, TRANSFER OF CARE ENDORSED.
[2021-02-12] MEDS: VITAMIN D 400 IU TAB PO SCH (09:35)
[2021-02-12] MEDS: PANTOPRAZOLE 40 MG INJ VIAL IVP SCH (09:35)
[2021-02-12] MEDS: ZINC SULF 220 MG CAP PO SCH (09:35)
--- NOTE | 2021-02-12 09:35 | NUR ---
ADMINISTERED SCHEDULED MEDICATIONS. PT TOLERATED WELL. PT IS STABLE AND DENIES ANY PAIN OR DISCOMFORT. PT IS IN BED USING INCENTIVE SPIROMETER AND TOLERATING WELL. WILL CONTINUE TO MONITOR CONDITION.
[2021-02-12] MEDS: ASCORBIC ACID 500 MG TAB PO SCH (09:36)
[2021-02-12] MEDS: DEXAMETHASONE 4 MG/ML VIAL IVP SCH (09:37)
[2021-02-12] MEDS: ENOXAPARIN 100 MG/ML SYR SUBQ SCH (09:38)
[2021-02-12] MEDS ORDERED: CEPH250C16 PO (10:30)
[2021-02-12] MEDS ORDERED: METF-350 PO (10:30)
[2021-02-12] MEDS ORDERED: ASPI-1205 PO (10:30)
[2021-02-12] MEDS ORDERED: DEC1 PO (10:30)
--- NOTE | 2021-02-12 11:45 | NUR ---
PT CONDITION IS STABLE. PT ON NC 4L, BREATHING NORMALLY WITH SLIGHT COUGH. PT DENIES ANY PAIN OR DISCOMFORT.
[2021-02-12 12:00] VITALS: BP 112/69
--- NOTE | 2021-02-12 13:15 | NUR ---
PT IS AWAKE AND WATCHING TV. PT IS STABLE AND DENIES ANY PAIN OR DISCOMFORT AT THE MOMENT. WILL CONTINUE WITH FREQ ROUNDING.
--- NOTE | 2021-02-12 15:00 | NUR ---
PT CONDITION IS STABLE. AWAKE AND WATCHING TV. DENIES PAIN OR DISTRESS. WILL CONTINUE TO MONITOR.
[2021-02-12 16:00] VITALS: BP 104/72
--- NOTE | 2021-02-12 16:07 | NUR ---
RECEIVED OXYGEN TANK AND CONCENTRATOR DELIVERY FOR PATIENT.
[2021-02-12 16:13] VITALS: BP 104/72
--- NOTE | 2021-02-12 17:41 | NUR ---
PERFORMED FREQ ROUNDING. PT IS STABLE AND ON CELL PHONE. DENIES PAIN OR DISCOMFORT AT THIS TIME. WILL CONTINUE TO MONITOR.
--- NOTE | 2021-02-12 20:10 | NUR ---
GAVE CHANGE OF SHIFT REPORT TO NIGHT NURSE AT BEDSIDE FOR CONTINUITY OF CARE. DISCUSSED POC. PT CONDITION IS STABLE. RN AWARE PT READY TO BE DISCHARGED ONLY NEEDS TO SET UP PT WITH OXYGEN TO GO HOME.
== END 2021-02-12 20:20 | disposition home or self-care (01) | DRG 720 ==
LOC: MED 18:10 → MTU 21:08
PROVIDERS: ADMIT Hospitalist; ATTEND Hospitalist
PROC: XW033E5 Introduction of Remdesivir Anti-infective into Peripheral Vein, Percutaneous Approach, New Technology Group 5 (ICD-10-PCS; principal; 2021-02-10)
DX: A41.9 Sepsis, unspecified organism (principal); J96.01 Acute respiratory failure with hypoxia; J12.82 Pneumonia due to coronavirus disease 2019; E43 Unspecified severe protein-calorie malnutrition; U07.1 COVID-19; E87.1 Hypo-osmolality and hyponatremia; R65.20 Severe sepsis without septic shock; E11.65 Type 2 diabetes mellitus with hyperglycemia; Z68.31 Body mass index [BMI] 31.0-31.9, adult
CPT/HCPCS: 36415; 36600; 71045; 80048; 80053; 81001; 82550; 82728; 82803; 82948; 83036; 83605; 83615; 83735; 83880; 84100; 84484; 85025; 85379; 85384; 85610; 85651; 85730; 86140; 87040; 87081; 87086; 87420; 87449; 87804; 93005; 96365; 96367; 99291; C9113; J0456; J0696; J1100; J1650; J1815; J7060; Q0092; U0003

== ENCOUNTER 2022-10-29 20:56 | Emergency (ER) | payer MEDICAID ==
[~2022-10-29] VITALS: Ht 172.7 cm; Wt 108.9 kg
[~2022-10-29 20:56] MED LIST: ASPI-1205 PO; CEPH250C16 PO; DEC1 PO; METF-350 PO
[2022-10-29 21:33] VITALS: BP 134/77
--- NOTE | 2022-10-29 21:42 | NUR ---
TO LOBBY FOLLOWING TRIAGE
--- NOTE | 2022-10-29 22:24 | NUR ---
PT TO BED #4 Addendum: 10/29/22 at 2226 by [email or web address] TP BED #11
--- NOTE | 2022-10-29 22:41 | NUR ---
Xray by bedside
[2022-10-29 22:47] LABS: BASOPHILS # (AUTO) 0.1 K/uL (0.00-0.22); EOSINOPHILS # (AUTO) 0.3 K/uL (0-0.4); EOSINOPHILS % (AUTO) 3.1 % (0.0-4.0); HEMATOCRIT 43.6 % (36-52); HEMOGLOBIN 14.8 g/dL (12.0-18.0); MEAN CORPUSCULAR HEMOGLOBIN 29 pg (27-31); MEAN CORPUSCULAR HGB CONC 34 g/dL (33-37); MONOCYTES # (AUTO) 0.8 K/uL (0.8-1.0); NEUTROPHILS # (AUTO) 4.8 K/uL (1.8-7.7); NEUTROPHILS % (AUTO) 47.9 % (42.2-75.2); PLATELET COUNT (AUTO) 211 K/uL (140-450); RED BLOOD CELL COUNT(AUTO) 5.07 MIL/uL (4.20-6.10)
[2022-10-29 23:05] LABS: ALBUMIN 3.8 g/dL (3.4-5.0); ASPARTATE AMINOTRANSFERASE 25 U/L (15-37); CHLORIDE 103 mmol/L (98-107); CREATININE 0.8 mg/dL (0.6-1.3); GFR ARICAN-AMERICAN 129 mL/min (>90); GLUCOSE 111 mg/dL (74-106); SODIUM SERUM 139 mmol/L (136-145); TOTAL BILIRUBIN 0.4 mg/dL (0.0-1.0); UREA NITROGEN, BLOOD 14 mg/dL (7-18)
[2022-10-30] MEDS ORDERED: LORazepam 1 MG TAB PO ONE (00:15)
[2022-10-30 03:35] VITALS: BP 130/74
--- NOTE | 2022-10-30 03:36 | NUR ---
Patient discharged with v/s stable. Written and verbal after care instructions given and explained. Patient verbalized understanding. Ambulatory with steady gait. All questions addressed prior to discharge. Advised to follow up with PMD.
== END 2022-10-30 03:36 | disposition home or self-care (01) ==
LOC: MED 20:56
DX: R42 Dizziness and giddiness (principal); I10 Essential (primary) hypertension; F41.9 Anxiety disorder, unspecified; E11.9 Type 2 diabetes mellitus without complications; E78.5 Hyperlipidemia, unspecified; Z79.4 Long term (current) use of insulin; Z79.899 Other long term (current) drug therapy
CPT/HCPCS: 36415; 70450; 71045; 80053; 84484; 85025; 93005; 99285; Q0092

== ENCOUNTER 2024-02-05 15:51 | Emergency (ER) | payer MEDICAID ==
[~2024-02-05] VITALS: Ht 172.7 cm; Wt 99.9 kg
[2024-02-05 16:02] VITALS: BP 130/77; PULSE 75; RESP 16; TEMP 97; O2SAT 97
[2024-02-05] MEDS: KETOROLAC 30 MG/ML VIAL IM ONE (17:58)
[2024-02-05] MEDS ORDERED: IBUP-2213 PO (18:25)
[2024-02-05] MEDS ORDERED: LID5T TP (18:25)
== END 2024-02-05 18:46 | disposition home or self-care (01) ==
LOC: MED 15:51
DX: S46.911A Strain of unspecified muscle, fascia and tendon at shoulder and upper arm level, right arm, initial encounter (principal); S63.611A Unspecified sprain of left index finger, initial encounter; J45.909 Unspecified asthma, uncomplicated; E11.9 Type 2 diabetes mellitus without complications; Z79.899 Other long term (current) drug therapy; Z79.82 Long term (current) use of aspirin; X58.XXXA Exposure to other specified factors, initial encounter; Y93.55 Activity, bike riding; Y92.410 Unspecified street and highway as the place of occurrence of the external cause; Y99.8 Other external cause status
CPT/HCPCS: 29130; 73030; 73140; 90471; 90715; 96372; 99284; J1885